=== PATIENT | female | born 1985 | race Asian ===

== ENCOUNTER → 2016-10-11 | Outpatient (CLI) | payer BC ==
[2016-10-11 16:47] LABS: BASO % 0.4 %; BASO ABS # 0.03 K/uL (0-0.2); COMPLETE YES; EOS % 0.5 %; IG% 0.1 %; LYMPH % 16.2 %; LYMPH ABS # 1.24 K/uL (1.2-3.4); MEAN CELL VOLUME 86.7 fL (80-100); MEAN CORPUSCULAR HEMOGLOBIN 28.7 pg (25-34); MEAN CORPUSCULAR HGB CONC 33.1 g/dl (32-36); MEAN PLATELET VOLUME 9.8 fL (7.4-10.4); NEUT % 75.8 %; PLATELET COUNT 352 K/uL (130-400); RED BLOOD COUNT 4.15 M/uL (4.2-5.4); WHITE BLOOD COUNT 7.67 K/uL (4.8-10.8)
== END | disposition home or self-care (01) ==
LOC: C.LAB1850 15:23
PROVIDERS: ATTEND Obstetrics & Gynecology
DX: Z34.01 Encounter for supervision of normal first pregnancy, first trimester (principal)

== ENCOUNTER → 2016-10-11 | Outpatient (CLI) | payer BC ==
[2016-10-11 18:25] LABS: URINE APPEARANCE CLEAR (CLEAR); URINE BILIRUBIN NEG (NEG); URINE COLOR YELLOW; URINE NITRITE NEG (NEG); URINE PH 6.5 (4.5-7.5); URINE SPECIFIC GRAVITY 1.009 (1.000-1.030); UROBILINOGEN NEG (NEG)
[2016-10-11 18:38] LABS: MANUAL MICROSCOPIC REQUIRED? NO; REVIEW REQ? NO
[2016-10-13 15:08] LABS: CHLAMYDIA TRACH RNA*** NOT DETECTED (NOT DETECTED); GC (NEIS GONORRHOEAE)RNA** NOT DETECTED (NOT DETECTED)
== END | disposition home or self-care (01) ==
LOC: C.LABSPEC 17:46
PROVIDERS: ATTEND Obstetrics & Gynecology
DX: Z34.01 Encounter for supervision of normal first pregnancy, first trimester (principal)

== ENCOUNTER → 2016-11-29 | Outpatient (CLI) | payer BC ==
[2016-11-29 16:07] LABS: GTGD 50 Grams
== END | disposition home or self-care (01) ==
LOC: C.LAB1850 14:47
PROVIDERS: ATTEND Obstetrics & Gynecology
DX: Z34.02 Encounter for supervision of normal first pregnancy, second trimester (principal)

== ENCOUNTER → 2017-02-21 | Outpatient (CLI) | payer BC ==
[2017-02-21 15:34] LABS: HEMATOCRIT 34.1 % (37-47)
[2017-02-21 16:29] LABS: URINE APPEARANCE CLOUDY (CLEAR); URINE BILIRUBIN NEG (NEG); URINE COLOR YELLOW; URINE NITRITE NEG (NEG); URINE SPECIFIC GRAVITY 1.014 (1.000-1.030); UROBILINOGEN NEG (NEG)
[2017-02-21 16:31] LABS: MANUAL MICROSCOPIC REQUIRED? NO; REVIEW REQ? NO
[2017-02-21 19:11] LABS: GTGD 50 Grams
== END | disposition home or self-care (01) ==
LOC: C.LAB1850 14:34
PROVIDERS: ATTEND Obstetrics & Gynecology
DX: Z34.03 Encounter for supervision of normal first pregnancy, third trimester (principal)

== ENCOUNTER → 2017-02-28 | Outpatient (CLI) | payer BC | END | disposition home or self-care (01) | LOC: C.LAB1850 08:14 | PROVIDERS: ATTEND Obstetrics & Gynecology | DX: O28.1 Abnormal biochemical finding on antenatal screening of mother (principal) ==

== ENCOUNTER → 2017-04-18 | Outpatient (CLI) | payer BC | END | disposition home or self-care (01) | LOC: C.LABSPEC 15:35 | PROVIDERS: ATTEND Obstetrics & Gynecology | DX: Z34.03 Encounter for supervision of normal first pregnancy, third trimester (principal) ==

== ENCOUNTER 2017-05-22 06:21 | Inpatient (IN) | payer BC ==
[~2017-05-22] VITALS: Ht 154.9 cm; Wt 64.0 kg
[2017-05-22] MEDS ORDERED: FOLI1TAB8 PO (07:02)
[2017-05-22 07:48] VITALS: Ht 154.9 cm; Wt 64.0 kg
[2017-05-22] MEDS ORDERED: LACTATED RINGER'S 1000ML 1,000 ML IV PRN (09:59)
[2017-05-22] MEDS ORDERED: BUTORPHANOL TARTRATE 1 MG/ML VIAL IV ONE (10:15)
[2017-05-22 10:26] LABS: HEMATOCRIT 36.9 % (37-47); MEAN CELL VOLUME 88.9 fL (80-100); MEAN CORPUSCULAR HEMOGLOBIN 29.9 pg (25-34); MEAN CORPUSCULAR HGB CONC 33.6 g/dl (32-36); MEAN PLATELET VOLUME 11.4 fL (7.4-10.4); PLATELET COUNT 153 K/uL (130-400); RED BLOOD COUNT 4.15 M/uL (4.2-5.4)
[2017-05-22] MEDS: LACTATED RINGER'S 1000ML 1,000 ML IV SCH ×2 (10:32→14:30)
[2017-05-22] MEDS ORDERED: BUPIVACAINE 0.25% 30 ML VIAL ONE (15:00)
[2017-05-22] MEDS ORDERED: FENTANYL 2MCG/ML ROPIV 1.25MG/ML 100ML BAG EPI ONE (15:00)
[2017-05-22] MEDS ORDERED: EpHEDrine SULFATE INJ 50 MG/ML AMP ONE (15:00)
[2017-05-22] MEDS ORDERED: FENTANYL CITRATE INJ 50 MCG/1 ML 2 ML VIAL ONE (15:01)
[2017-05-22] MEDS ORDERED: LACTATED RINGER'S 1000ML 500 ML IV PRN ×2 (15:06→15:54)
[2017-05-22] MEDS ORDERED: OXYTOCIN 30 UNITS/500ML NSS IV PRN (15:15)
[2017-05-22] MEDS ORDERED: NALOXONE HCL INJ 1 MG in SODIUM CHLORIDE 0.9% 1000ML 1,000 ML IV PRN (15:54)
[2017-05-22] MEDS ORDERED: NALBUPHINE HCL INJ 10 MG/ML AMP IV PRN (16:00)
[2017-05-22] MEDS ORDERED: NALOXONE HCL INJ 0.4 MG/1 ML VIAL/CARP IV PRN (16:00)
[2017-05-22] MEDS ORDERED: ONDANSETRON INJ 2 MG/ML 2 ML VIAL IV PRN (16:00)
[2017-05-22] MEDS ORDERED: EpHEDrine SULFATE INJ 50 MG/ML AMP IV PRN (16:00)
[2017-05-22] MEDS ORDERED: DiphenhydrAMINE HCL 50 MG/ML VIAL IV PRN (16:00)
[2017-05-22] MEDS: FENTANYL 2MCG/ML ROPIV 1.25MG/ML 100ML BAG EPI PRN (23:32)
[2017-05-23] VITALS (16 sets, daily range): BP systolic 93–101; BP diastolic 54–78; PULSE 70–78; TEMP 37.2–38.2; O2SAT 92–99
[2017-05-23] MEDS: FENTANYL 2MCG/ML ROPIV 1.25MG/ML 100ML BAG EPI PRN (01:59)
[2017-05-23] MEDS ORDERED: ACETAMINOPHEN 500 MG TAB PO STA (02:58)
[2017-05-23] MEDS ORDERED: ACETAMINOPHEN 500 MG TAB PO ONE (02:59)
[2017-05-23] MEDS ORDERED: AMPICILLIN IV 2,000 MG in SODIUM CHLOR 0.9% AD-VAN 100ML 100 ML IV SCH (03:00)
[2017-05-23] MEDS ORDERED: LACTATED RINGER'S 1000ML 1,000 ML IV SCH ×2 (03:37→13:30)
[2017-05-23] MEDS ORDERED: CITRIC ACID/SODIUM CITRATE 15 ML UDC PO ONE (03:45)
[2017-05-23] MEDS ORDERED: CEFAZOLIN IV 2,000 MG in SYRINGE 0 ML IV SCH (03:45)
[2017-05-23] MEDS ORDERED: GENTAMICIN INJ 80 MG in DEXTROSE 5% 100ML 100 ML IV SCH (04:00)
[2017-05-23] MEDS ORDERED: FENTANYL CITRATE INJ 50 MCG/1 ML 2 ML VIAL ONE (04:26)
[2017-05-23] MEDS ORDERED: LIDOCAINE/EPINEPHRINE 2% 1:200,000 20 ML SDV ONE (04:29)
[2017-05-23] MEDS ORDERED: ONDANSETRON INJ 2 MG/ML 2 ML VIAL ONE (04:45)
[2017-05-23] MEDS ORDERED: MoRPHine SULFATE PF 1 MG/ML 10 ML AMP/VIAL ONE (04:45)
[2017-05-23] MEDS ORDERED: OXYTOCIN INJ 10 UNITS/ML VIAL ONE (04:45)
[2017-05-23] MEDS ORDERED: PHENYLEPHRINE 100MCG/ML 5ML SYR ONE (04:45)
[2017-05-23] MEDS ORDERED: PROMETHAZINE HCL INJ 25 MG/ML 1 ML VIAL ONE (04:50)
--- NOTE | 2017-05-23 05:25 | Anesthesia Procedure Note ---
Anesthesia Epidural Removal Nt Date & Time May 23, 2017 at 05:25 Vital Signs Pain Intensity: 8.0 Notes Mental Status: alert / awake / arousable, participated in evaluation Nausea / Vomiting: adequately controlled Pain: adequately controlled Airway Patency, RR, SpO2: stable & adequate BP & HR: stable & adequate Hydration State: stable & adequate Neuraxial Anesthesia: was administered Anesthetic Complications: no major complications apparent, pt satisfied with anesthetic care Epidural: removed without complications, with tip intact
--- NOTE | 2017-05-23 05:27 | HISTORY & PHYSICAL EXAMINATION ---
DATE OF ADMISSION: 05/22/2017 PREOPERATIVE DIAGNOSES: 1. Intrauterine at 41 and 3/7 weeks. 2. Chorioamnionitis. 3. tachycardia. POSTOPERATIVE DIAGNOSES: Same. 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 Her cervix was still unfavorable, so Blackwell catheter was placed. Once the Blackwell fell out, she was 4 and 80. She underwent an epidural anesthetic. Sometime after that, she underwent amniotomy for copious amounts of clear fluid. At that time, she was 5-6, 90% and -2. Unfortunately, she has not progressed beyond there because of poor contraction pattern. An FSE was placed after decelerations to the 70s for 7 minutes, which resolved with resuscitation. An IUPC was placed and she was not found to be pelon adequately. At approximately 2:50 a.m. she spiked a temperature to 101.5. The baby became tachycardic and began to have lates with some contractions. She was still 5-6cm and her MVUs were about 150. Given she is remote from delivery, I have recommended delivery. They are agreeable. PAST OBSTETRICAL AND GYNECOLOGICAL HISTORY: This is her first . She has no abnormal Pap smears or STDs. ALLERGIES: No known drug allergies. MEDICATIONS: Folic and vitamin. PAST MEDICAL HISTORY: She is a carrier for Hepatitis A. She has history of breast lumps. She has a history of chickenpox. PAST SURGICAL HISTORY: Appendectomy and wisdom teeth removal. SOCIAL HISTORY: The patient denies tobacco, alcohol or drug use. Lives with her . PHYSICAL EXAMINATION: GENERAL: This is a well-developed, well-nourished female in no acute distress. VITAL SIGNS: Temperature 101.5. ABDOMEN: Soft, gravid and nontender. EXTREMITIES: Benign. CERVIX: 5-6, 90, -2 station. Tocodynamometer shows her pelon every 2-4 minutes. heart tones in the 170s with minimal variability plus positive scalp stim, late/variable decelerations with contractions. ASSESSMENT: This is a 1, para 0 at 41 and 3/7 weeks with chorioamnionitis and tachycardia. Given the remoteness of delivery and the onset of variable/late decelerations, I recommended delivery. They are agreeable. The risks of the procedure were discussed with the patient including risks of anesthesia, bleeding requiring transfusion, infection, poor wound healing, damage to the surrounding structures including bowel, bladder, vessels, nerves and ureters with need for further surgery, hospitalization or intervention. We discussed the risk of injury to the baby and risk of any surgery including heart attack, blood clot, stroke or . Questions were asked and answered. Consent was reviewed and signed and surgery will be proceeded with. EMILY
--- NOTE | 2017-05-23 05:27 | [facility] Post Operative Brief Note ---
Immediate Operative Summary Operative Date May 23, 2017. Pre-Operative Diagnosis at 41 3/7 weeks chorioamnionitis tachycardia Post-Operative Diagnosis same Procedure(s) Performed primary LTCS Surgeon Dr. Maria Del Carmen Munoz Char Belt Operator Surgeon(s) Carolyn Cavazos, RN Estimated Blood Loss 600cc Findings viable male infant in oa, 8#14oz, apgars 8/9, nl utx/tubes/ovs bilaterally Fluids (cc crystalloids) 1600cc Specimens Placenta Drains claire Anesthesia gett Complication(s) None Disposition L&D
[2017-05-23] MEDS ORDERED: LACTATED RINGER'S 1000ML 500 ML IV PRN (05:28)
[2017-05-23] MEDS ORDERED: SODIUM CHLORIDE 0.9% 1000ML 1,000 ML IV PRN (05:28)
[2017-05-23] MEDS ORDERED: NALOXONE HCL INJ 0.08 MG in SYRINGE 1.8 ML IV PRN (05:28)
[2017-05-23] MEDS ORDERED: NALOXONE HCL INJ 1 MG in SODIUM CHLORIDE 0.9% 1000ML 1,000 ML IV PRN (05:28)
[2017-05-23] MEDS ORDERED: NO NARCOTICS OR SEDATIVES SCH (05:30)
[2017-05-23] MEDS ORDERED: OXYTOCIN INJ 20 UNITS in LACTATED RINGER'S 1000ML 1,000 ML IV SCH (05:30)
[2017-05-23] MEDS ORDERED: LANOLIN OINT EXT PRN ×2 (05:30)
[2017-05-23] MEDS ORDERED: DC PCA PRN (05:30)
[2017-05-23] MEDS ORDERED: ONDANSETRON INJ 2 MG/ML 2 ML VIAL IV PRN ×2 (05:30)
[2017-05-23] MEDS ORDERED: DIPHTHERIA/TETANUS/PERTUSSIS 0.5 ML SYR/VIAL IM. ONE (05:30)
[2017-05-23] MEDS ORDERED: ATROPINE SULFATE 0.1 MG/ML 5ML SYR IV PRN (05:30)
[2017-05-23] MEDS ORDERED: EpHEDrine SULFATE INJ 50 MG/ML AMP IV PRN ×2 (05:30)
[2017-05-23] MEDS ORDERED: MoRPHine SULFATE PF 1 MG/ML 10 ML AMP/VIAL EPI PRN (05:30)
[2017-05-23] MEDS ORDERED: DiphenhydrAMINE HCL 50 MG/ML VIAL IV PRN ×2 (05:30→20:00)
[2017-05-23] MEDS ORDERED: PROMETHAZINE HCL INJ 25 MG in SODIUM CHLORIDE 0.9% 50ML 50 ML IV PRN (05:30)
[2017-05-23] MEDS ORDERED: ACETAMINOPHEN 1000 MG/100 ML IV IV ONE (05:30)
[2017-05-23] MEDS ORDERED: IBUPROFEN 600 MG TAB PO PRN (05:30)
[2017-05-23] MEDS ORDERED: KETOROLAC TROMETHAMINE 30 MG/ML VIAL IV. PRN ×2 (05:30→20:00)
[2017-05-23] MEDS ORDERED: NALBUPHINE HCL INJ 10 MG/ML AMP IV PRN (05:30)
[2017-05-23] MEDS ORDERED: NALOXONE HCL 0.4 MG/1 ML VIAL/CARP IV PRN (05:30)
[2017-05-23] MEDS ORDERED: SUPERCREAM 0.870 % 15GM JAR EXT PRN (05:30)
[2017-05-23] MEDS ORDERED: BENZOCAINE 20% AER SPR 82.5 GM CAN EXT PRN (05:30)
[2017-05-23] MEDS ORDERED: HYDROCORTISONE ACETATE 25 MG SUPP PR PRN (05:30)
--- NOTE | 2017-05-23 05:53 | Anesthesiology Progress Note ---
Anesthesia Post Op Note Date & Time May 23, 2017 at 05:52 Vital Signs Pain Intensity: 8.0 Notes Mental Status: alert / awake / arousable, participated in evaluation Pt Amnestic to Procedure: Yes Nausea / Vomiting: adequately controlled Pain: adequately controlled Airway Patency, RR, SpO2: stable & adequate BP & HR: stable & adequate Hydration State: stable & adequate Neuraxial Anesthesia: was administered, sensory block is resolving Anesthetic Complications: no major complications apparent
--- NOTE | 2017-05-23 06:02 | OPERATIVE REPORT ---
DATE OF OPERATION: 05/23/2017 PREOPERATIVE DIAGNOSES: 1. Intrauterine at 41-3/7 weeks. 2. Chorioamnionitis. 3. tachycardia. POSTOPERATIVE DIAGNOSES: Same. PROCEDURE PERFORMED: Primary low transverse section. SURGEON: Maria Del Carmen Munoz MD. BUILDING SERVICEMAN: Anju Cavazos RN. ANESTHESIA: Epidural. ESTIMATED BLOOD LOSS: 600 mL. FLUIDS: 1600 mL. URINE OUTPUT: 120 mL of concentrated orange urine drained from the bladder at the end of the procedure. INDICATIONS: The patient is a 1, para 0 at 41-3/7 weeks, who presented in early active labor. She progressed very slowly, had difficulty obtaining adequate contractions with Pitocin augmentation. The patient developed a temperature of 101.5 consistent with chorioamnionitis and the baby developed tachycardia with some resultant late decelerations. Decision was made to proceed with delivery. FINDINGS: Viable male in OA presentation. Immediate cry. No nuchal cord. Weight 8 pounds 14 ounces, Apgars 8 and 9. Uterus, tubes, and ovaries were normal bilaterally. COMPLICATIONS: None. DRAINS: Blackwell. DISPOSITION: To recovery room in stable condition. DESCRIPTION OF PROCEDURE: The patient was taken to the operating room where she was identified verbally and by bracelet. She was placed in dorsal supine position with a leftward tilt. A Blackwell catheter had previously been placed. Her epidural was dosed. She was prepped and draped in a normal sterile fashion. Her anesthetic was tested and found to be adequate. A Pfannenstiel skin incision was made with the knife. This was taken down to the underlying layer of fascia with Bovie electrocautery. Bleeding was attended to with Bovie electrocautery. The fascia was incised in the midline with Bovie electrocautery and taken out laterally with scissors. The superior edge of the fascial incision was grasped and elevated and the underlying layer of rectus muscle was taken off bluntly and entered with scissors. In a similar fashion, the inferior edge of the fascial incision was grasped and elevated and the underlying layer of rectus muscle was taken off bluntly and entered with scissors. The muscles were bluntly and sharply in the midline. The peritoneum was entered bluntly and taken superiorly and inferiorly with good visualization of the bladder sharply with scissors. The incision was stretched. The bladder blade was placed. The vesicouterine peritoneum was grasped with a snap and entered with scissors and taken out laterally with scissors and the bladder flap was created digitally. Hysterotomy incision was scored with a knife and the uterus was entered, clear fluid noted. The incision was spread with the pasta press operator's fingers. The pasta press operator's hand was gently placed in the uterus. The head was delivered atraumatically through the incision using mild fundal pressure. There was no nuchal cord. The nose and mouth were bulb suctioned. The rest of the infant was then delivered without difficulty. There was immediate vigorous cry on the field. The nose and mouth were again bulb suctioned. The cord was clamped and cut. The was handed off to waiting community living coach for drying and attention. Cord blood and gases were obtained. Placenta was manually extracted. There were several areas of adherent membranes that were removed with moistened laparotomy sponges until the uterine cavity was clear. Hysterotomy incision was then repaired with 2 layers, the first in a running locked 0 Vicryl layer, the second in an imbricating 0 Vicryl layer. Some oozing from the incision was attended to with a [id number] suture of 0 Vicryl. The posterior cul-de-sac was cleared of clot and debris. The uterus was re-anteriorized. Some oozing was attended to with a [id number] suture of 0 Vicryl until hemostasis of the uterus was assured. The muscles were reapproximated in the midline with several interrupted sutures of 0 Vicryl. The fascia was reapproximated starting at the edges meeting in the midline with 0 Vicryl. The subcuticular tissue was irrigated and found to be hemostatic and the skin was closed with a 4-0 Vicryl subcuticular stitch. All sponge, lap, and needle counts were correct x2. The patient tolerated the procedure well and was taken to recovery room in stable condition. I attest to the content of the Intraoperative Record and any orders documented therein. Any exception s are noted below.
[2017-05-23] MEDS: DOCUSATE SODIUM 100 MG CAP PO SCH ×2 (07:42→20:19)
[2017-05-23] MEDS: SIMETHICONE 80 MG CHEW PO SCH ×4 (07:42→20:19)
[2017-05-23] MEDS: PRENATAL VITAMIN TAB PO SCH (07:42)
[2017-05-23] MEDS ORDERED: GENTAMICIN CONSULT ACTIVE PRN (07:45)
[2017-05-23] MEDS: CLINDAMYCIN IV 600 MG in DEXTROSE 5% 50ML 50 ML IV SCH ×2 (07:49→15:54)
[2017-05-23] MEDS ORDERED: GENTAMICIN INJ 130 MG in DEXTROSE 5% 100ML 100 ML IV ONE (08:30)
--- NOTE | 2017-05-23 08:48 | Pharmacy Progress Note ---
Pharmacy Abx Dose Short Note Date of Service May 23, 2017. Assessment & Plan Assessment * 31 year old, 41 3/7 wks female, who developed fever during this AM - beginning abx therapy for possible chorioamnionitis (ampicillin + clindamycin + gentamicin) * Pharmacy has been consulted to initiate / adjust gentamicin dosing * Patient's stated admission weight = ~64kg, no post- weight was obtained and cannot be obtained per nursing discussion this AM. Estimated post- weight is ~59.5kg based upon 's weight. * Patient's estimated IBW is 52.3kg and will be used to calculate gent doses as her current weight is between 1 - 1.25 x her IBW * Chart reviewed, no documented h/o renal impairment, will check SCr daily next 2 days to screen for changing renal fxn with the use of NSAIDs + gent Plan Gentamicin * Traditional dosing method initiated in this patient * Loading dose: 130mg (2.5mg/kg IBW) x 1 * Maintenance dose: 80mg (1.5mg/kg IBW) IV Q 8 hours * Goal peak: 5-6mcg/mL, goal trough ~1-1.5 * Peak and trough levels have been ordered w/ 3rd maintenance dose Pharmacy will continue to follow and will adjust dose/frequency as necessary. Thank you.
[2017-05-23] MEDS: AMPICILLIN IV 2,000 MG in SODIUM CHLOR 0.9% AD-VAN 100ML 100 ML IV SCH ×2 (10:27→17:42)
[2017-05-23] MEDS: GENTAMICIN INJ 80 MG in DEXTROSE 5% 100ML 100 ML IV SCH (16:34)
[2017-05-23] MEDS ORDERED: ACETAMINOPHEN IV 650 MG in EMPTY BAG 0 ML IV PRN (17:00)
[2017-05-23] MEDS ORDERED: OXYCODONE/ACETAMINOPHEN 5-325 TAB PO PRN ×2 (20:00)
[2017-05-23] MEDS ORDERED: MoRPHine SULFATE 2 MG/ML CARP IV PRN (20:00)
[2017-05-23] MEDS ORDERED: DC INTRASPINAL MORPHINE ONE (20:00)
[2017-05-23] MEDS ORDERED: MEPERIDINE HCL 50 MG/ML CARP IV PRN ×2 (20:00)
[2017-05-24] MEDS: GENTAMICIN INJ 80 MG in DEXTROSE 5% 100ML 100 ML IV SCH ×2 (00:23→09:06)
[2017-05-24] MEDS: CLINDAMYCIN IV 600 MG in DEXTROSE 5% 50ML 50 ML IV SCH ×4 (00:23→23:44)
[2017-05-24] MEDS: AMPICILLIN IV 2,000 MG in SODIUM CHLOR 0.9% AD-VAN 100ML 100 ML IV SCH ×4 (01:48→19:24)
[2017-05-24] MEDS ORDERED: ACETAMINOPHEN 325 MG TAB PO ONE (02:00)
[2017-05-24] MEDS ORDERED: NURSING VERBAL MED ORDER ONE (02:00)
[2017-05-24 03:45] VITALS: BP 93/58; PULSE 67; TEMP 36.6
--- NOTE | 2017-05-24 07:22 | Progress Note ---
Subjective May 24, 2017. Subjective conversation w/ patient, physical exam Voiding: no voiding problems Passing Gas: Yes Diet Tolerance: Regular Diet Lochia: Small Feeding Type: Breast Feeding Review of Systems Constitutional: No fever, No chills, No sweats, No weight loss, No weakness, No fatigue, No problem reported Breast: No see HPI, No breast lump, No change in shape, No nipple discharge, No breast pain, No problem reported Abdomen: No pain, No nausea, No vomiting, No diarrhea, No constipation, No GI bleeding, No problem reported Female : No see HPI, No dysuria, No urinary frequency, No hematuria, No incontinence, No abnormal vaginal bleeding, No vaginal discharge, No problem reported Objective Vital Signs Date Time Temp Pulse Resp B/P (MAP) Pulse Ox O2 Delivery O2 Flow Rate FiO2 05/24/17 03:45 36.6 67 18 93/58 (70) Room Air 05/23/17 23:40 37.6 76 18 98/62 (74) Room Air 05/23/17 23:40 Room Air 05/23/17 20:30 37.5 75 18 93/54 (67) 95 Room Air 05/23/17 20:00 18 95 05/23/17 19:00 20 97 05/23/17 18:00 18 98 05/23/17 18:00 37.2 05/23/17 17:00 20 99 05/23/17 16:00 18 97 05/23/17 16:00 97 Room Air 05/23/17 16:00 38.2 70 18 98/58 (71) 97 Room Air 05/23/17 15:00 20 97 05/23/17 14:05 97 Nasal Cannula 1.0 05/23/17 14:00 20 92 05/23/17 12:00 18 95 05/23/17 12:00 37.7 78 18 95/78 (84) 95 Room Air 05/23/17 11:00 18 96 05/23/17 10:00 20 95 05/23/17 09:50 37.7 76 20 101/61 (74) 95 Room Air 05/23/17 09:00 20 95 05/23/17 08:40 37.4 78 20 101/61 (74) 96 Room Air 05/23/17 08:40 96 Room Air Physical Exam General Appearance: WELL-APPEARING, NO APPARENT DISTRESS Abdomen: soft Fundus: Firm, Non-Tender, Relation to Umbilicus (2 above U) Incision Description: Clean, Dry & Intact Extremities: no calf tenderness Assessment and Plan Day#: 1 Continue Routine Care: afebrile since midnight will continue antibiotics through 24 hours of being afebrile continue rest of care plan.
[2017-05-24 07:28] VITALS: BP 104/67; PULSE 84; TEMP 36.4; O2SAT 94
[2017-05-24] MEDS ORDERED: GENT. PEAK 1 EA IV ONE (08:00)
[2017-05-24] MEDS: DOCUSATE SODIUM 100 MG CAP PO SCH ×2 (08:04→19:40)
[2017-05-24] MEDS: PRENATAL VITAMIN TAB PO SCH (08:04)
[2017-05-24] MEDS: SIMETHICONE 80 MG CHEW PO SCH ×4 (08:04→19:40)
[2017-05-24 08:21] LABS: BASO % 0.2 %; BASO ABS # 0.02 K/uL (0-0.2); COMPLETE YES; EOS % 0.7 %; HEMATOCRIT 30.6 % (37-47); IG% 0.3 %; LYMPH % 11.5 %; MEAN CELL VOLUME 89.7 fL (80-100); MEAN CORPUSCULAR HEMOGLOBIN 29.3 pg (25-34); MEAN CORPUSCULAR HGB CONC 32.7 g/dl (32-36); MEAN PLATELET VOLUME 11.4 fL (7.4-10.4); MONO % 6.8 %; NEUT % 80.5 %; PLATELET COUNT 140 K/uL (130-400); RED BLOOD COUNT 3.41 M/uL (4.2-5.4); WHITE BLOOD COUNT 9.53 K/uL (4.8-10.8)
[2017-05-24 08:37] LABS: CREATININE 0.42 mg/dl (0.60-1.20)
[2017-05-24 11:49] VITALS: BP 103/68; PULSE 60; TEMP 36.8; O2SAT 96
--- NOTE | 2017-05-24 12:44 | Pharmacy Progress Note ---
Pharmacy Abx Dose Short Note Date of Service May 24, 2017. Assessment & Plan Assessment 31 year old female receiving gentamicin, clindamycin and ampicillin IV for treatment of chorioamnionitis s/p . * Day # 2 of antimicrobial therapy. * WBC and Scr WNL * Pt afebrile today Plan Gentamicin * Trough level of 1 mcg/mL is within target range of 1-1.5 mcg/mL * Peak level of 2.8 mcg/ml is subtherapeutic * Change dosing to 5mg/kg q 24 hours based on IBW of 52.3kg= 260 mg IV every 24 hours * Goal trough level for chorioamnionitis : 5 to 6 mcg/mL * Therapy is expected to be discontinued if patient remains afebrile. * If therapy continued, a trough level will be ordered Pharmacy will continue to follow and will adjust dose/frequency as necessary. Thank you.
[2017-05-24 15:00] VITALS: BP 111/75; PULSE 66; TEMP 37
[2017-05-24] MEDS ORDERED: DEXTROSE 5% IV SCH (16:00)
[2017-05-24] MEDS ORDERED: GENTAMICIN IV SCH (16:00)
[2017-05-24 19:35] VITALS: BP 122/81; PULSE 64; TEMP 37; O2SAT 96
[2017-05-25] MEDS: AMPICILLIN IV 2,000 MG in SODIUM CHLOR 0.9% AD-VAN 100ML 100 ML IV SCH ×2 (00:37→01:15)
[2017-05-25 00:45] VITALS: BP 118/74; PULSE 52; TEMP 36.8; O2SAT 94
[2017-05-25 05:10] VITALS: BP 99/62; PULSE 56; TEMP 36.4; O2SAT 96
[2017-05-25 07:05] VITALS: BP 109/70; PULSE 50; TEMP 36.3; O2SAT 96
[2017-05-25 07:17] LABS: HEMATOCRIT 31.9 % (37-47)
--- NOTE | 2017-05-25 07:22 | Progress Note ---
Subjective May 25, 2017. Subjective conversation w/ patient, physical exam Ambulation: ambulating normally Voiding: no voiding problems Passing Gas: Yes Diet Tolerance: Regular Diet Lochia: Moderate Feeding Type: Bottle Feeding Review of Systems Constitutional: No fever, No chills Respiratory: No cough Cardiac: No chest pain Breast: No problem reported Abdomen: No nausea, No vomiting Female : No problem reported Objective Vital Signs Date Time Temp Pulse Resp B/P (MAP) Pulse Ox O2 Delivery O2 Flow Rate FiO2 05/25/17 07:05 36.3 50 16 109/70 (83) 96 Room Air 05/25/17 05:10 36.4 56 16 99/62 (74) 96 Room Air 05/25/17 00:45 36.8 52 20 118/74 (89) 94 Room Air 05/25/17 00:45 94 Room Air 05/24/17 19:35 37.0 64 20 122/81 (95) 96 Room Air 05/24/17 15:00 Room Air 05/24/17 15:00 37.0 66 20 111/75 (87) Room Air 05/24/17 11:49 36.8 60 18 103/68 (80) 96 Room Air 05/24/17 08:20 Room Air 05/24/17 07:28 36.4 84 16 104/67 (79) 94 Room Air Physical Exam General Appearance: WELL-APPEARING, NO APPARENT DISTRESS Respiratory/Chest: no respiratory distress, no accessory muscle use Cardiovascular: no edema Abdomen: non tender, soft Fundus: Firm Incision Description: Clean, Dry & Intact Extremities: no calf tenderness Laboratory Results Last 24 Hours Test 05/24/17 07:48 05/24/17 11:23 05/25/17 07:01 White Blood Count 9.53 K/uL Red Blood Count 3.41 M/uL Hemoglobin 10.0 g/dL 10.4 g/dL Hematocrit 30.6 % 31.9 % Mean Corpuscular Volume 89.7 fL Mean Corpuscular Hemoglobin 29.3 pg Mean Corpuscular Hemoglobin Concent 32.7 g/dl Platelet Count 140 K/uL Mean Platelet Volume 11.4 fL Neutrophils (%) (Auto) 80.5 % Lymphocytes (%) (Auto) 11.5 % Monocytes (%) (Auto) 6.8 % Eosinophils (%) (Auto) 0.7 % Basophils (%) (Auto) 0.2 % Neutrophils # (Auto) 7.66 K/uL Lymphocytes # (Auto) 1.10 K/uL Monocytes # (Auto) 0.65 K/uL Eosinophils # (Auto) 0.07 K/uL Basophils # (Auto) 0.02 K/uL RDW Standard Deviation 49.3 fL RDW Coefficient of Variation 15.1 % Immature Granulocyte % (Auto) 0.3 % Immature Granulocyte # (Auto) 0.03 K/uL Creatinine 0.42 mg/dl Est Creatinine Clear Calc Drug Dose 166.2 ml/min Estimated GFR () > 150.0 Estimated GFR (Non- 136.6 Gentamicin Level Trough 1.00 mcg/ml Gentamicin Level Peak 2.8 mcg/ml Assessment and Plan Post-Op Day#: 2 Continue Routine Care: Afebrile >24hr will D/C triple abx. Feeling well today. Routine post op care, anticipate d/c tomorrow
[2017-05-25 07:47] LABS: CREATININE 0.48 mg/dl (0.60-1.20)
[2017-05-25] MEDS: SIMETHICONE 80 MG CHEW PO SCH ×4 (09:29→19:52)
[2017-05-25] MEDS: DOCUSATE SODIUM 100 MG CAP PO SCH ×2 (09:29→19:52)
[2017-05-25] MEDS: PRENATAL VITAMIN TAB PO SCH (09:29)
[2017-05-25 16:25] VITALS: BP_SYST 130; BP_SYST 147; BP_DIAS 75; BP_DIAS 89; PULSE 56; TEMP 36.9; O2SAT 96
[2017-05-25 19:55] VITALS: BP_SYST 127; BP_SYST 142; BP_DIAS 76; BP_DIAS 80
[2017-05-25 23:25] VITALS: BP 119/78; PULSE 75; TEMP 36.7
[2017-05-26 07:15] VITALS: BP 105/67; PULSE 57; TEMP 36.4; O2SAT 96
[2017-05-26] MEDS: PRENATAL VITAMIN TAB PO SCH (07:24)
[2017-05-26] MEDS: DOCUSATE SODIUM 100 MG CAP PO SCH (07:24)
[2017-05-26] MEDS: SIMETHICONE 80 MG CHEW PO SCH ×2 (07:25→12:13)
--- NOTE | 2017-05-26 07:30 | Progress Note ---
Subjective May 26, 2017. Subjective conversation w/ patient, physical exam Ambulation: ambulating normally Voiding: no voiding problems Objective Vital Signs Date Time Temp Pulse Resp B/P (MAP) Pulse Ox O2 Delivery O2 Flow Rate FiO2 05/25/17 23:25 36.7 75 18 119/78 (92) Room Air 05/25/17 23:25 Room Air 05/25/17 19:55 142/80 (100) 127/76 (93) 05/25/17 16:25 36.9 56 18 147/89 (108) 96 Room Air 130/75 (93) 05/25/17 16:25 Room Air 05/25/17 08:50 Room Air Physical Exam General Appearance: WELL-APPEARING, NO APPARENT DISTRESS Respiratory/Chest: lungs clear Cardiovascular: regular rate, rhythm Fundus: Firm, Non-Tender Incision Description: Clean, Dry & Intact Extremities: no calf tenderness Assessment and Plan Post-Op Day#: 3 Continue Routine Care: - doing well - afebrile - will d/c home - instructions/Rx given - f/u in 6 weeks
[2017-05-26] MEDS ORDERED: MTR600X PO (07:31)
[2017-05-26] MEDS ORDERED: OXYC-57 PO (07:31)
--- NOTE | 2017-05-26 07:32 | Discharge Instructions ---
Discharge Instructions Date of Service May 26, 2017. Admission Reason for Admission: Labor Check Discharge Discharge Diagnosis / Problem: same Discharge Goals Goal(s): Routine recovery after Medications Continue Dispensed Medications: supercream, dermaplast Activity Recommendations Activity Limitations: per Instructions/Follow-up section . Current Hospital Diet Patient's current hospital diet: Regular OB Diet Discharge Diet Recommended Diet: Regular OB Diet Procedures Procedures Performed: primary LTCS Pending Studies Studies pending at discharge: no Medical Emergencies . Who to Call and When: Medical Emergencies: If at any time you feel your situation is an emergency, please call 911 immediately. . Non-Emergent Contact Non-Emergency issues call your: Air Brake Mechanic Call Non-Emergent contact if: temperature is above 100.5 . . "Provider Documentation" section prepared by Mihir Bach. . VTE Core Measure Inpt VTE Proph given/why not?: Tatyana [employer] Drug Monitoring Program Search Results: patient reviewed within database
--- NOTE | 2017-05-26 07:37 | Discharge Instructions ---
Discharge Instructions Date of Service May 26, 2017. Admission Reason for Admission: Labor Check Discharge Discharge Diagnosis / Problem: same Discharge Goals Goal(s): Routine recovery after Medications Continue Dispensed Medications: supercream, dermaplast Activity Recommendations Activity Limitations: as noted below . Instructions / Follow-Up Instructions / Follow-Up ACTIVITY RECOMMENDATIONS: * Gradual return to full activity over the next 2-3 weeks. * No lifting - nothing heavier than baby over the next 2-3 weeks. * Do not engage in vigorous exercise, sexual activity or sports until cleared by your physician. * Do not drive or operate any motorized equipment until cleared by your physician. * You may shower/bathe daily. MEDICATIONS: For discomfort or pain, you may use Acetaminophen (Tylenol), Ibuprofen (Advil), or Naproxen (Aleve) following the package directions. For constipation you may use Colace following the package directions. BREAST CARE: If you are not breast feeding: * Wear a supportive bra 24 hours a day for one to two weeks. * Avoid stimulating your breasts and nipples as much as possible during the first few weeks after delivery. * When taking a shower, have the warm water hit your back, not breasts. * When your breasts feel full, apply ice packs. Usually three to four times a day helps ease the discomfort. * Take a mild pain medication (Tylenol / Motrin) when you are uncomfortable. If breast feeding: * Use breast milk to lubricate nipples. Lansinoh cream may be used for sore nipples. You do not need to remove cream prior to breast feeding. If using a different brand of cream, check the label for directions regarding removal of cream prior to nursing. * Wear a supportive bra. * If having problems with breasts or breast feeding, call a store consultant or your health care provider. SPECIAL CARE INSTRUCTIONS: When you are discharged from the hospital, it is important for you to follow the instructions listed below: * During the first week at home, you should be able to care for yourself and your baby. In addition, the usual light household activities are encouraged. * Limit your activities to the way you feel. Do not try to clean the house or move furniture. Be sensible. * If you actively engage in sports and have done so up until the time of your delivery, you may resume these activities as soon as you feel able. This may take up to one month or even longer. Use good judgment. * Continue to take your vitamins for at least six weeks after the of your baby. * Your diet need not be limited unless you were on a special diet before your delivery. Breast-feeding mothers need around 2500 calories per day and at least 64-80 ounces of fluid per day (8 to 10 glasses). * You should eat foods from the four major food groups. Crash diets or fad diets are to be avoided. Eating lean meats, fresh fruits and vegetables, low-fat dairy products, high fiber foods and a regular exercise program, will help you get back to your pre- weight without putting your health at risk. * Constipation is sometimes a problem after delivery. Take a mild laxative as needed. If breast feeding, Milk of Magnesia is acceptable to use. You may use a suppository or Fleets enema. * A daily shower or tub bath is suggested. Wash incision daily with warm soapy water and pat dry. It doesn't need to be covered unless drainage is present. * A bloody vaginal discharge will usually continue until around four weeks . A small amount of bleeding may continue for as long as six weeks. Vaginal discharge changes from the bright red bleeding after delivery to pink then brownish and finally yellowish-pink before becoming white and disappearing. * Bleeding may increase with activity. Your first period may come in 4-8 weeks. If you are breast feeding, your period may be delayed even longer. * [place] (sex) can begin whenever both you and your partner feel comfortable and do not have any form of genital infection. It is recommended that you wait at least six weeks for internal and external healing to occur. If you have questions, please talk to your health care practitioner. A condom should be used to prevent infection and . * Foreplay, gentle intercourse and lubrication is very important the first several times to prevent pain. A water-based lubricant such as K-Y jelly or Astroglide may be used. * If you have RH negative blood and your baby is RH positive, you will receive RHOGAM by injection prior to discharge. The nurse will give you a card to keep with you that has the date and place that you received RHOGAM after delivery. * During your care, you had a Rubella screen done to check for the presence of rubella antibodies in your blood. If your test was negative, you will receive a Rubella vaccine prior to discharge. This vaccine may cause a fever, soreness at the injection site and flu-like symptoms. If these symptoms persist, notify your health care practitioner. is not advised for one month after a Rubella vaccine. * Verbalizes understanding of car seat law as reviewed with patient nursing. * Car Seat hand-out given and reviewed with patient by nursing. * Shaken baby information reviewed with patient by nursing. Call you doctor if: * Heavy bleeding (saturating several pads an hour) or passing clots the size of your fist. * A fever >101 degrees F (38.3 degrees C) on two occasions four hours apart and /or chills. * Unusual pain in the pelvic or vaginal areas. * Call the doctor for any increased redness, drainage or swelling around the incision and any pain unrelieved by prescribed pain medication. * "Baby Blues" lasting longer than two weeks. If you have any questions or concerns, call your health care practitioner at . FOLLOW UP VISIT: * Please call the office at to schedule a 6 week examination. It is important you keep this appointment. It is important for you to make arrangements for either yearly or twice yearly check-ups thereafter. Current Hospital Diet Patient's current hospital diet: Regular OB Diet Discharge Diet Recommended Diet: Regular OB Diet Procedures Procedures Performed: primary LTCS Pending Studies Studies pending at discharge: no Medical Emergencies . Who to Call and When: Medical Emergencies: If at any time you feel your situation is an emergency, please call 911 immediately. . Non-Emergent Contact Non-Emergency issues call your: Rotary Driller Call Non-Emergent contact if: you have a fever, temperature is above 100.5, your pain is not controlled, your pain is worsening, wound has increased drainage, wound has increased redness . . "Provider Documentation" section prepared by Mihir Bach. . VTE Core Measure Inpt VTE Proph given/why not?: Tatyana Tony PA Drug Monitoring Program Search Results: patient reviewed within database, no issues identified
[2017-05-26 14:07] VITALS: BP_DIAS 67; PULSE 57; TEMP 36.4
--- NOTE | 2017-06-06 09:26 | DISCHARGE SUMMARY ---
ADMISSION DIAGNOSES: Intrauterine at 41 and 3/7 weeks. DISCHARGE DIAGNOSES: 1. Intrauterine at 41 and 3/7 weeks. 2. Chorioamnionitis. 3. tachycardia. PROCEDURES: Primary low transverse section. HISTORY OF PRESENT ILLNESS: The patient is a 31-year-old 1, para 0 with an EDC of 05/13/2017 who presented the morning of 05/21/2017 in early labor. Her cervix was still unfavorable so Blackwell catheter was placed. Once the Blackwell fell out she was 4 and 80%. She underwent an epidural anesthetic. She subsequently underwent an amniotomy for copious amounts of clear fluid. At that time she was 5-6 cm dilated, 90% and -2 station. Unfortunately, she did not progress beyond that because of a poor contraction pattern. An FSE was placed after deceleration to the 70s for 7 minutes, which resolved with routine resuscitation. An IUPC was placed and she was not found to be pelon adequately. At approximately 2:50 a.m. she spiked temperature to 101.5, the baby became tachycardic and began to have some lates with contractions. She was still 5-6 cm dilated and MVUs were about 150. Given she is remote from delivery I recommended section. They are agreeable. For the rest of the patient's detailed history and physical, please see her dictated history and physical. ASSESSMENT: This is a 1, para 0 at 41 and 3/7 weeks with chorioamnionitis and tachycardia. Given the remoteness to delivery and the onset of variable/late deceleration I have recommended delivery. They are agreeable. HOSPITAL COURSE: The patient underwent a primary low transverse section without complication. Estimated blood loss 600 mL. She delivered a viable male infant in occiput anterior presentation, no nuchal cord. Weight 8 pounds 14 ounces, Apgars 8 and 9. Normal uterus, tubes, and ovaries were noted bilaterally. The patient's postoperative course was uncomplicated. She tolerated a regular diet. She ambulated without difficulty. She remained afebrile. She voided after the removal of her Blackwell catheter. She was discharged home on postoperative day #3. She was given instructions and prescriptions to follow up in 6 weeks.
[2017-06-10] MEDS ORDERED: PRENTAB26 PO (07:02)
== END 2017-05-26 14:50 | disposition home or self-care (01) | DRG 765 ==
LOC: C.OPB 06:21 → C.LD 06:21 → UNDOADMIN 10:01 → C.LD 10:01 → C.OPB 10:01 → C.OBG 05-23 09:37 → C.LD 05-23 09:37
PROVIDERS: ADMIT Obstetrics & Gynecology; ATTEND Obstetrics & Gynecology
PROC: 10D00Z1 Extraction of Products of Conception, Low, Open Approach (ICD-10-PCS; principal; 2017-05-23 03:57)
DX: O76 Abnormality in fetal heart rate and rhythm complicating labor and delivery (principal); O41.1230 Chorioamnionitis, third trimester, not applicable or unspecified; O48.0 Post-term pregnancy; Z3A.41 41 weeks gestation of pregnancy; Z37.0 Single live birth

== ENCOUNTER 2017-06-10 18:41 | Emergency (ER) | payer BC, OTHER ==
[~2017-06-10] VITALS: Ht 157.5 cm; Wt 53.2 kg
[~2017-06-10 18:41] MED LIST: FOLI1TAB8 PO; MTR600X PO; OXYC-57 PO; PRENTAB26 PO
[2017-06-10 18:45] VITALS: TEMP 39.2; Ht 157.5 cm; Wt 53.2 kg
[2017-06-10] MEDS ORDERED: CEPHALEXIN MONOHYDRATE 250 MG CAP PO ONE (19:00)
[2017-06-10] MEDS ORDERED: ACETAMINOPHEN 325 MG TAB PO STA (19:00)
[2017-06-10] MEDS ORDERED: CEPH500C PO (19:04)
--- NOTE | 2017-06-10 19:05 | EMERGENCY ROOM VISIT NOTE ---
History Report prepared by Gabriela: Wang Lucas Under the Supervision of: Dr. Rafael Amor D.O. First contact with patient: 18:49 Chief Complaint: FEVER Stated Complaint: FEVER POST History of Present Illness The patient is a 31 year old female who presents to the Emergency Room with complaints of worsening fever at began at 1 hour ago. Patient states her fever was 39.5C. Patient is present with her and mother. She has associated symptoms of tiredness, pain in left breast area, and generalized body soreness. She denies having a sore throat, runny nose, or cough. Patient denies taking Tylenol. Patient adds that she is currently nursing. She adds that she has had white vaginal discharge recently. Pertinent medical history includes a C- section delivery. Source of History: patient Onset: 1 hour ago Timing: worsening Associated Symptoms: + chest pain (Left breast area), No sorethroat, No cough Note: Patient has tiredness and generalized body soreness. Patient denies runny nose. Review of Systems See HPI for pertinent positives & negatives. A total of 10 systems reviewed and were otherwise negative. Past Medical & Surgical Medical Problems: (1) Encounter for supervision of normal intrauterine in primigravida, antepartum (2) with 41 completed weeks gestation (3) Prolonged , antepartum Family History No pertinent family medical history. Social History Smoking Status: Never Smoker Current/Historical Medications Scheduled Cephalexin Monohydrate (Keflex), 500 MG PO QID Folic Acid (Folvite), 1 TAB PO DAILY Multivit/Min/Iron/Fol Ac/Pren ( Vitamin), 1 TAB PO DAILY Scheduled PRN Ibuprofen (Ibuprofen), 600 MG PO Q4H PRN for Pain, LAM, Cramping, or Fever Oxycodone/Acetaminophen 5MG/325MG (Percocet 5MG/325MG), 1 TAB PO Q4H PRN for Pain - Pain Scale 1-5 Allergies Coded Allergies: No Known Allergies (Unverified , 05/26/17) Physical Exam Vital Signs Date Time Temp Pulse Resp B/P (MAP) Pulse Ox O2 Delivery O2 Flow Rate FiO2 06/10/17 18:45 39.2 118 20 96 Room Air Physical Exam CONSTITUTIONAL/VITAL SIGNS: Reviewed / noted above. GENERAL: Non-toxic in appearance. INTEGUMENTARY: Warm, dry, and [place]. HEAD: Normocephalic. EYES: without scleral icterus or trauma. ENT/OROPHARYNX: clear and moist. LYMPHADENOPATHY/NECK: Is supple without lymphadenopathy or meningismus. RESPIRATORY: Lungs clear and equal. CHEST: Redness and tenderness to the lateral aspect of the left breast in the area of the nipple CARDIOVASCULAR: Regular rate and rhythm. GI/ABDOMEN: Soft and nontender. No organomegaly or pulsatile mass. No rebound or guarding. Normal bowel sounds. EXTREMITIES: Warm and well perfused. BACK: No CVA tenderness. NEUROLOGICAL: Intact without focal deficits. PSYCHIATRIC: normal affect. MUSCULOSKELETAL: Normally developed with good muscle tone. Medical Decision & Procedures Medications Administered Medications (Trade) Dose Ordered Sig/Emily Route Start Time Stop Time Status Last Admin Dose Admin Cephalexin Monohydrate (Keflex Cap) 500 mg NOW ONCE PO 06/10/17 19:00 06/10/17 19:01 DC 06/10/17 19:07 500 MG Acetaminophen (Tylenol Tab) 650 mg NOW STAT PO 06/10/17 19:00 06/10/17 19:01 DC 06/10/17 19:07 650 MG ED Course 1855: Previous medical records were reviewed. The patient was evaluated in room C9. A complete history and physical examination was performed. 1900: Tylenol Tab 650mg PO, Keflex Cap 500mg PO 1904: On reevaluation, the patient is resting comfortably. I discussed the results and findings with the patient. She verbalized agreement of the treatment plan. She was discharged home. Medical Decision Differential includes viral illness, influenza, streptococcal pharyngitis, meningitis, pneumonia, sinusitis, UTI, pyelonephritis, otitis media, mastitis. This is a 31-year-old female 3 weeks who presents to the ED with a chief complaint of fever, body aches and malaise. She states that her symptoms started earlier today. The patient was nursing. She reports some discomfort in the left breast. Temperature is 39.2 and heart rate is 118. The patient's physical exam reveals redness, fullness and tenderness to the lateral aspect of the left breast near the nipple. The patient denies any other symptoms with regards to the cause for her fever. No upper respiratory symptoms. No pulmonary symptoms. No abdominal pains. incision is well-healed. Denies any abnormal vaginal discharge. The patient was started on Keflex. She was given Tylenol here. She was told to either continue nursing or pumping. She is felt to be stable for discharge. Impression Primary Impression: Mastitis Scribe Attestation The scribe's documentation has been prepared under my direction and personally reviewed by me in its entirety. I confirm that the note above accurately reflects all work, treatment, procedures, and medical decision making performed by me. Departure Information Dispostion Home / Self-Care Prescriptions Cephalexin Monohydrate (Keflex) 500 Mg Cap 500 MG PO QID, #28 CAP Prov: Rafael Amor D.O. 06/10/17 Referrals No Doctor, Assigned (PCP) Forms HOME CARE DOCUMENTATION FORM, IMPORTANT VISIT INFORMATION Patient Instructions ED Breast Infec, My [facility] Additional Instructions Your fever today is caused by a breast infection called Mastitis. Cephalexin as prescribed 4 times a day for 7 days. Continue to nurse or pump using both breasts. Take Tylenol as needed for fevers and discomfort. Anticipate improvement of symptoms over the next several days.
[2017-06-10 19:22] VITALS: BP 126/60; PULSE 100; O2SAT 98
== END 2017-06-10 19:34 | disposition home or self-care (01) ==
LOC: C.EDB 18:42 → C.EDC 19:34
DX: N61.0 Mastitis without abscess (principal)

== ENCOUNTER → 2017-07-17 | Outpatient (CLI) | payer OTHER ==
[~2017-07-17] MED LIST changes: +CEPH500C PO; -FOLI1TAB8 PO; -MTR600X PO; -OXYC-57 PO
== END | disposition home or self-care (01) ==
LOC: C.PAPS 14:40
PROVIDERS: ATTEND Obstetrics & Gynecology
DX: Z12.4 Encounter for screening for malignant neoplasm of cervix (principal)